=== PATIENT | male | born 1970 | race Caucasian/White ===

== ENCOUNTER 2017-12-20 15:21 | Emergency (ER) | payer BC ==
[2017-12-20 15:59] VITALS: BP 122/83
--- NOTE | 2017-12-20 16:38 | UC ---
Eye Complaint HPI - HPI Summary HPI Summary: PATIENT RUBBED NASAL ASPECT OF LEFT EYE LAST NIGHT AND SEVERAL MINUTES LATER DEVELOPED BRIGHT RED AREA ON CONJUNCTIVA. PATIENT DENIES VISUAL DISTURBANCE, HEADACHE, NAUSEA. NO DRAINAGE FROM THE EYE. FEELS SLIGHTLY UNCOMFORTABLE BUT NO FB SENSATION. NO PAIN WITH EOM. DOES NOT WEAR CONTACT LENSES. HE IS NOT ON BLOOD THINNERS. - History of Current Complaint Chief Complaint: UCEye Stated Complaint: LFT EYE COMPLAINT Time Seen by Provider: 12/20/17 16:12 Hx Obtained From: Patient Onset/Duration: Sudden Onset, Lasting Hours, Still Present Timing: Constant Severity Initially: Moderate Severity Currently: Moderate Pain Intensity: 0 Pain Scale Used: 0-10 Numeric Location of Injury: Conjunctiva Aggravating Factor(s): Nothing Alleviating Factor(s): Nothing Associated Signs And Symptoms: Negative: Photophobia, Drainage (Clear), Vision Impairment Bilateral - Allergies/Home Medications Allergies/Adverse Reactions: Allergies Allergy/AdvReac Type Severity Reaction Status Date / Time No Known Allergies Allergy Verified 12/20/17 15:44 Home Medications: Home Medications Atorvastatin* [Lipitor 10 MG*] 10 mg PO DAILY 12/20/17 [History Confirmed ] Garlic 150 mg PO 12/20/17 [History] Multivitamin [Multivitamins] 1 cap PO 12/20/17 [History] [place]-3 Fatty Acids/Fish Oil [Fish Oil 1,000 mg Capsule] 1 each PO 12/20/17 [ History] buPROPion TAB* [Wellbutrin TAB*] 1 tab PO DAILY 12/20/17 [History Confirmed 09/04] raNITIdine HCl [Zantac 75] 75 mg PO DAILY 12/20/17 [History Confirmed 12/20/17] PMH/Surg Hx/FS Hx/Imm Hx GI/ History: Gastroesophageal Reflux Psychological History: Depression - Surgical History Surgical History: Yes Surgery Procedure, Year, and Place: NECK FUSION. HERNIA REPAIR. VASECTOMY - Family History Known Family History: Negative: Hypertension - Social History Alcohol Use: None Substance Use Type: None Smoking Status (MU): Current Some Day Smoker Type: Cigarettes Amount Used/How Often: 1 PACK PER WEEK Review of Systems Constitutional: Negative Eyes: Eye Redness Respiratory: Negative Cardiovascular: Negative Gastrointestinal: Negative All Other Systems Reviewed And Are Negative: Yes Physical Exam Triage Information Reviewed: Yes Appearance: Well-Appearing, No Pain Distress, Well-Nourished Vital Signs: Initial Vital Signs Temp 97.9 F 12/20/17 15:47 Pulse 78 12/20/17 15:47 Resp 16 12/20/17 15:47 BP 122/83 12/20/17 15:47 Pulse Ox 98 12/20/17 15:47 Vital Signs Reviewed: Yes Eyes: Positive: Conjunctiva Clear - LEFT EYE SUBCONJUNCTIVAL HEMORRHAGE - NASAL ASPECT, Other: - PERRL, EOMI. Negative: Discharge ENT: Positive: Hearing grossly normal Neck: Positive: Supple Respiratory: Positive: No respiratory distress, No accessory muscle use Cardiovascular: Positive: Pulses Normal Abdomen Description: Positive: Soft Musculoskeletal: Positive: No Edema Neurological: Positive: Alert Psychological: Positive: Age Appropriate Behavior Skin: Negative: rashes Eye Complaint Course/Dx - Differential Dx/Diagnosis Provider Diagnoses: LEFT EYE SUBCONJUNCTIVAL HEMORRHAGE Discharge - Sign-Out/Discharge Documenting (check all that apply): Discharge/Admit/Transfer - Discharge Plan Condition: Stable Disposition: HOME Patient Education Materials: Subconjunctival Hemorrhage (ED) Referrals: Solange Wallace [Primary Care Provider] - If Needed Additional Instructions: YOUR SUBCONJUNCTIVAL HEMORRHAGE SHOULD RESOLVE ON ITS OWN WITH TIME. AVOID ANY FURTHER TRAUMA TO THE EYEBALL ABLE. FOLLOW-UP WITH AN EYE DOCTOR IF YOU DEVELOP PAIN WITH EYE MOVEMENT, FOREIGN BODY SENSATION, PURULENT DRAINAGE, SENSITIVITY TO LIGHT, FEVER, VISUAL DISTURBANCE, HEADACHE, NAUSEA OR ANY OTHER CONCERNING SYMPTOMS. - Billing Disposition and Condition Condition: STABLE Disposition: Home
== END 2017-12-20 16:38 | disposition home or self-care (01) ==
LOC: UCCORT 15:21
DX: H11.32 Conjunctival hemorrhage, left eye (principal); F32.9 Major depressive disorder, single episode, unspecified; K21.9 Gastro-esophageal reflux disease without esophagitis; F17.210 Nicotine dependence, cigarettes, uncomplicated
CPT/HCPCS: 99202; G0463

== ENCOUNTER 2019-07-04 11:46 | Emergency (ER) | payer BC, OTHER ==
[2019-07-04 12:10] VITALS: BP 111/75
--- NOTE | 2019-07-04 12:11 | UC ---
Shoulder Pain HPI - HPI Summary HPI Summary: 48-year-old male who was at work at 940 this morning when he tripped on a pallet and fell onto his right side. He did not hit his head, he denies any neck pain. He complains of right shoulder right rib and right hip and groin pain, as well as pain distal right tib-fib. He is ambulatory. - History of Current Complaint Chief Complaint: UCGeneralIllness Stated Complaint: WC- RT SHOULDER,RIB,ANKLE INJURY Time Seen by Provider: 07/04/19 12:08 Hx Obtained From: Patient Onset/Duration: Sudden Onset, Lasting Minutes Timing: Constant Severity Initially: Moderate Severity Currently: Mild Location Of Pain: Is Diffuse - See history of present illness Pain Intensity: 9 Character: Dull, Aching Aggravating Factor(s): Movement Alleviating Factor(s): Rest Associated Signs And Symptoms: Positive: Negative - Allergies/Home Medications Allergies/Adverse Reactions: Allergies Allergy/AdvReac Type Severity Reaction Status Date / Time ciprofloxacin Allergy Tachycardia Verified 07/04/19 12:03 PMH/Surg Hx/FS Hx/Imm Hx Previously Healthy: Yes GI/ History: Gastroesophageal Reflux Psychological History: Depression - Surgical History Surgical History: Yes Surgery Procedure, Year, and Place: NECK FUSION. HERNIA REPAIR. VASECTOMY - Family History Known Family History: Negative: Hypertension - Social History Occupation: Employed Full-time Alcohol Use: None Substance Use Type: None Smoking Status (MU): Current Some Day Smoker Type: Cigarettes Amount Used/How Often: LESS THAN 1 PACK PER WEEK Review of Systems All Other Systems Reviewed And Are Negative: Yes Cardiovascular: Positive: Other - Right sided rib pain. Musculoskeletal: Positive: Other: - Pain right shoulder, right ribs, right hip and pelvis, right distal tib-fib Denies neck pain, denies hitting his head. Is Patient Immunocompromised?: No Physical Exam Triage Information Reviewed: Yes Appearance: Well-Appearing, No Pain Distress, Well-Nourished Vital Signs: Initial Vital Signs Temp 98.2 F 07/04/19 12:05 Pulse 76 07/04/19 12:05 Resp 16 07/04/19 12:05 BP 111/75 07/04/19 12:05 Pulse Ox 99 07/04/19 12:05 Vital Signs Reviewed: Yes Eyes: Positive: Conjunctiva Clear Neck: Positive: Supple, Nontender - C-spine nontender, No Lymphadenopathy Respiratory: Positive: Lungs clear, Normal breath sounds, No respiratory distress, No accessory muscle use - Mild tenderness on palpation to the right lateral upper rib area. No erythema, swelling, bruising or crepitus is noted, no deformity. Cardiovascular: Positive: RRR, No Murmur, Pulses Normal, Brisk Capillary Refill Abdomen Description: Positive: Nontender, No Organomegaly, Soft. Negative: CVA Tenderness (R), CVA Tenderness (L), Distended, Guarding, Hepatomegaly, Splenomegaly Bowel Sounds: Positive: Present Musculoskeletal: Positive: Strength Intact, ROM Intact, Other: - Mild pain on palpation to the anterior shoulder, no bruising, erythema, deformity or swelling is noted. Full range of motion. Good peripheral pulses neuro sensation capillary refill. Pain to the right chest wall mid upper rib area ( see above notes). Pain to the right hip on palpation and to the right groin area with abduction of his right leg. Pain on palpation to the medial aspect of his right distal tib-fib film. No bruising, erythema, swelling or deformity is noted. Once again good peripheral pulses neuro sensation and capillary refill. Ankle is nontender. Achilles is intact. Neurological Exam: Normal Neurological: Positive: Alert, Muscle Tone Normal, Other: - Reflexes +2 at the knee. Psychological Exam: Normal Skin Exam: Normal Shoulder Course/Dx - Course Course Of Treatment: Right shoulder x-ray: Negative Chest x-ray: Negative Right hip and pelvis x-ray: Negative Right tib-fib x-ray: Negative Patient is comfortable here and ambulates without difficulty. - Differential Dx/Diagnosis Provider Diagnosis: Contusion of right shoulder, Contusion of right lower leg, initial encounter, Contusion of rib on right side, Contusion of right hip Discharge ED - Sign-Out/Discharge Documenting (check all that apply): Patient Departure All imaging exams completed and their final reports reviewed: Yes - Discharge Plan Condition: Fair Disposition: HOME Patient Education Materials: Contusion in Adults (ED) Forms: *Work Release Referrals: Solange Wallace [Primary Care Provider] - Additional Instructions: Apply ice intermittently over the next day or 2 to the sore areas. May take Tylenol every 4 hours and ibuprofen every 8 hours for pain. Follow-up with your primary care provider early next week if continued pain or no improvement or worsening symptoms. - Billing Disposition and Condition Condition: FAIR Disposition: Home - Attestation Statements Provider Attestation: I was available for consult. This patient was seen by the SURENDRA. The patient was not presented to, seen by, or examined by me. -Suhail
[2019-07-04] MEDS ORDERED: Acetaminophen TAB* 325 MG PO ONE (12:15)
== END 2019-07-04 13:30 | disposition home or self-care (01) ==
LOC: UCCORT 11:46
DX: S40.011A Contusion of right shoulder, initial encounter (principal); S80.11XA Contusion of right lower leg, initial encounter; S20.211A Contusion of right front wall of thorax, initial encounter; S70.01XA Contusion of right hip, initial encounter; F17.210 Nicotine dependence, cigarettes, uncomplicated; Z88.1 Allergy status to other antibiotic agents; W18.09XA Striking against other object with subsequent fall, initial encounter; Y92.9 Unspecified place or not applicable
CPT/HCPCS: 71046; 99212; A9270-GY; G0463